=== PATIENT | male | born 1980 | race African-American/Black ===

== ENCOUNTER 2018-07-28 17:27 | Emergency (ER) | payer MEDICARE, MEDICAID ==
[~2018-07-28] VITALS: Ht 170.2 cm; Wt 40.8 kg
[~2018-07-28 17:27] MED LIST: ALPR2TAB2 PO; ASCO500T11 PO; GABA-339 PO; HYDR-2616; MULT-351 PO; NITROFURANTOIN PO; NYS5LQ MT; OXY10CRT PO; SACC250C PO
[2018-07-28 19:01] LABS: Basophils # (auto) 0.1 uL; Basophils % (auto) 0.7 % (0.0-2.0); Eosinophils # (auto) 0.3 uL; Hematocrit 40.8 % (41.0-53.0); Hemoglobin 13.3 g/dL (13.5-17.5); Lymphocytes # (auto) 1.7 uL; Mean Corpuscular Hgb Conc. 32.7 g/dL (32.0-36.0); Monocytes # (auto) 0.5 uL; Red Cell Distribution Width 15.7 % (11.8-14.3)
[2018-07-28 19:03] LABS: Eosinophils % (auto) 4.4 % (0.0-7.0); Lymphocytes % (auto) 22.5 % (10.0-50.0); Mean Corpuscular Volume 76.5 fL (80.0-100.0); Monocytes % (auto) 6.9 % (0.0-12.0); Neutrophils # (auto) 4.8 uL; Neutrophils % (auto) 65.5 % (37.0-80.0); Nucleated Red Blood Cells % 0.1 %; Platelet Count (auto) 219 10^3/uL (140-450); Red Blood Cells 5.33 10^6/uL (4.5-5.90); White Blood Cell 7.4 10^3/uL (4.4-10.8)
[2018-07-28 19:31] LABS: Albumin 3.1 g/dL (3.4-5.0); Bilirubin, Total 0.3 mg/dL (0.2-1.0); Calcium 9.1 mg/dL (8.5-10.1); Potassium 4.1 mmol/L (3.5-5.1); Total Protein 7.4 g/dL (6.4-8.2)
[2018-07-28 19:37] LABS: Urine Bacteria FEW /hpf (None Seen); Urine Blood 1+ /uL (Negative); Urine Mucus FEW (None Seen); Urine Specific Gravity 1.016 (1.001-1.035); Urine WBC 40 /hpf (0 - 3)
[2018-07-28 20:03] VITALS: BP 109/89
[2018-07-28] MEDS ORDERED: cefTRIAXone W LIDOCAINE 1 GM IM IM ONE (20:15)
== END 2018-07-28 21:33 | disposition home or self-care (01) ==
LOC: EDBD 17:27 → ER 17:31
DX: L89.322 Pressure ulcer of left buttock, stage 2 (principal); L89.312 Pressure ulcer of right buttock, stage 2; N39.0 Urinary tract infection, site not specified; G82.50 Quadriplegia, unspecified; F17.210 Nicotine dependence, cigarettes, uncomplicated; F12.10 Cannabis abuse, uncomplicated
CPT/HCPCS: 36415; 80053; 81001; 82962; 85025; 99284; J0696

== ENCOUNTER 2018-07-29 08:05 | Emergency (ER) | payer MEDICARE, MEDICAID ==
[~2018-07-29] VITALS: Ht 172.7 cm; Wt 44.5 kg
[2018-07-29] MEDS: MORPHINE SULFATE 4 MG/ML SYR/VIAL IV ONE (12:01)
[2018-07-29] MEDS: SODIUM CHLORIDE 0.9% 1,000 ML IV ONE (12:02)
[2018-07-29] MEDS: METOCLOPRAMIDE HCL 5MG/ml INJ 2ml VIAL IV ONE (12:02)
[2018-07-29] MEDS: ACETAMINOPHEN/CODEINE#3 (300/30mg) TAB PO ONE (12:14)
[2018-07-29 12:47] VITALS: BP 166/92
[2018-07-29] MEDS: LEVOFLOXACIN 500 MG TAB PO ONE (13:07)
[2018-07-29 13:20] LABS: Eosinophils # (auto) 0 uL; Eosinophils % (auto) 0.1 % (0.0-7.0); Lymphocytes # (auto) 1.2 uL; Lymphocytes % (auto) 9.1 % (10.0-50.0); Monocytes # (auto) 0.8 uL
[2018-07-29 13:22] LABS: Basophils # (auto) 0.1 uL; Basophils % (auto) 0.4 % (0.0-2.0); Hematocrit 43.6 % (41.0-53.0); Hemoglobin 14.2 g/dL (13.5-17.5); Mean Corpuscular Hemoglobin 24.6 pg (28.0-32.0); Mean Corpuscular Hgb Conc. 32.5 g/dL (32.0-36.0); Mean Corpuscular Volume 75.6 fL (80.0-100.0); Monocytes % (auto) 6.4 % (0.0-12.0); Platelet Count (auto) 255 10^3/uL (140-450); Red Blood Cells 5.77 10^6/uL (4.5-5.90); Red Cell Distribution Width 15.7 % (11.8-14.3); White Blood Cell 13.1 10^3/uL (4.4-10.8)
[2018-07-29 13:27] LABS: Urine Bacteria FEW /hpf (None Seen); Urine Blood 1+ /uL (Negative); Urine Mucus FEW (None Seen); Urine Specific Gravity 1.022 (1.001-1.035); Urine WBC 20 /hpf (0 - 3)
[2018-07-29 13:29] LABS: BUN/Creatinine Ratio 13.2; Calcium 8.7 mg/dL (8.5-10.1)
== END 2018-07-29 15:35 | disposition home or self-care (01) ==
LOC: ER 08:07
DX: N39.0 Urinary tract infection, site not specified (principal); G82.50 Quadriplegia, unspecified; E44.1 Mild protein-calorie malnutrition; F41.1 Generalized anxiety disorder; F17.210 Nicotine dependence, cigarettes, uncomplicated; F12.10 Cannabis abuse, uncomplicated; Z68.1 Body mass index [BMI] 19.9 or less, adult
CPT/HCPCS: 36415; 80048; 81001; 82962; 83735; 85025; 99284; A6257; J7030